=== PATIENT | male | born 1985 | race Hispanic/Latino ===

== ENCOUNTER 2017-04-12 13:14 | Emergency (ER) | payer OTHER ==
[2017-04-12 13:24] VITALS: BP 142/64; PULSE 90; RESP 16; TEMP 99; O2SAT 97
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
--- NOTE | 2017-04-12 16:27 | RAD ---
PROCEDURE: Right wrist 04/12/2017 HISTORY: WRIST INJURY COMPARISON: None. FINDINGS: BONES: Current study reveals a transverse fracture extending through the mid waist of the navicular/scaphoid bone. JOINTS: No evidence of dislocation. SOFT TISSUES: Normal. OTHER FINDINGS: None. IMPRESSION: Transverse fracture extending through the mid waist of the navicular/scaphoid. . Note that this report was placed in PA review folder for followup.
== END 2017-04-12 14:43 | disposition home or self-care (01) ==
LOC: H.ER 13:14
DX: S62.001A Unspecified fracture of navicular [scaphoid] bone of right wrist, initial encounter for closed fracture (principal); W19.XXXA Unspecified fall, initial encounter; Y92.410 Unspecified street and highway as the place of occurrence of the external cause